=== PATIENT | male | born 1965 | race Caucasian/White ===

== ENCOUNTER 2016-11-08 11:28 | Emergency (ER) | payer MEDICARE, MEDICAID ==
[2016-11-08] MEDS ORDERED: HYDROMORPHONE HCL INJ/PF 2 MG/ML AMPULE IV ONE ×2 (11:39→12:41)
[2016-11-08] MEDS ORDERED: ONDANSETRON HCL INJ/PF 4 MG/2 ML SDV IV ONE (11:39)
--- NOTE | 2016-11-08 11:43 | ER Document Report ---
ED Extremity Problem, Lower - General Stated Complaint: RIGHT FOOT PAIN Time Seen by Provider: 11/08/16 11:36 Notes: Patient was in a hurry walking to his car and while coming down steps, his right toes caught on the bottom step plantar flexing the toes and distal foot causing injury to the dorsal aspect of the foot. Patient eased himself to the ground and sustained no other injuries. He cannot walk on the right foot. Transported here by EMS. Given 1 mg of Dilaudid IV and repeat. Patient has a history of bilateral foot drop secondary to 4 prior back surgeries. He has braces that he is supposed to wea on his legs all the time, but didn't put them on this morning. TRAVEL OUTSIDE OF THE [place] IN LAST 30 DAYS: No - Related Data Allergies/Adverse Reactions: Penicillins Allergy (Verified 10/16/15 12:36) Past Medical History - Social History Smoking Status: Unknown if Ever Smoked Cigarette use (# per day): No Family History: Reviewed & Not Pertinent - Medical History Medical History: Other - Chronic back pain on OxyContin and oxycodone - Past Medical History Cardiac Medical History: Reports: Hx Hypercholesterolemia, Hx Hypertension Pulmonary Medical History: Reports: Hx Pneumonia - Spontaneous Neurological Medical History: Reports: Other - Bilateral foot drop secondary to previous 4 surgeries on the lumbar back. Has a dorsal stimulator. GI Medical History: Reports: Hx Gastroesophageal Reflux Disease Past Surgical History: Reports: Hx Orthopedic Surgery - 4 back surgeries with placement of rods and pins, Other - Spontaneous pneumothorax surgery Review of Systems - Review of Systems Notes: REVIEW OF SYSTEMS: CONSTITUTIONAL : Denies fever. EENT: Denies eye, ear, nose or mouth or throat pain or other symptoms. CARDIOVASCULAR: Denies chest pain. RESPIRATORY: Denies cough, chest congestion, or shortness of breath. GASTROINTESTINAL: Denies abdominal pain or nausea, vomiting, or diarrhea. GENITOURINARY: Denies difficulty or painful urinating, urinary frequency, blood in urine. MUSCULOSKELETAL: Denies back or neck pain. Denies joint pain or swelling. See history of present illness. SKIN: Denies rash or skin lesions. NEUROLOGICAL: Denies LOC or altered mental status. Denies headache. Denies sensory loss or motor deficits. ALL OTHER SYSTEMS REVIEWED AND NEGATIVE. Physical Exam - Vital signs Vitals: Temp Pulse Resp BP Pulse Ox 98.2 F 85 16 105/69 94 11/08/16 13:44 11/08/16 13:44 11/08/16 13:44 11/08/16 13:44 11/08/16 13:44 Interpretation: Normal - Notes Notes: PHYSICAL EXAMINATION: GENERAL: Well-appearing, in no acute distress. HEAD: Atraumatic, normocephalic. ENT: oropharynx clear without exudates. Moist mucous membranes. NECK: Normal range of motion, supple. LUNGS: Breath sounds clear and equal bilaterally. HEART: Regular rate and rhythm without murmurs. ABDOMEN: Soft, nontender. No guarding or rebound. BACK: No tenderness throughout entire back. Dorsal stimulator palpable above the right buttock. EXTREMITIES: Normal range of motion left lower extremity without pain. Right foot has a moderate size hematoma on the dorsum of the midfoot region. Very tender to touch. Patient has excellent flow into the toes of both feet. Toes are pink and warm bilaterally. NEUROLOGICAL: Normal speech, gait not tested because of painful foot, unable to bear weight. Normal sensory, motor, and reflex exams. Awake, alert, and oriented x3. Cranial nerves normal. SKIN: Warm, dry, no rashes. Course - Vital Signs Vital signs: Temp Pulse Resp BP Pulse Ox 98.2 F 85 16 105/69 94 11/08/16 13:44 11/08/16 13:44 11/08/16 13:44 11/08/16 13:44 11/08/16 13:44 - Diagnostic Test Radiology reviewed: Image reviewed, Reports reviewed - X-ray of the right foot reveals a small fracture of the second metatarsal. Soft tissue swelling. Procedures - Immobilization Right Distal Foot Pre-Proc Neuro Vasc Exam: Normal Immobilizer type: Posterior ankle Performed by: PCT Post-Proc Neuro Vasc Exam: Normal Alignment checked and good: Yes Discharge - Discharge Clinical Impression: Avulsion fracture of metatarsal bone of right foot Qualifiers: Encounter type: initial encounter Fracture type: closed Qualified Code(s): S92.301A - Fracture of unspecified metatarsal bone(s), right foot, initial encounter for closed fracture Condition: Stable Disposition: HOME, SELF-CARE Additional Instructions: Avulsion Fracture Foot You have an avulsion fracture, sometimes also called a flake or chip fracture. This type of fracture is caused by a sudden stress on a ligament or tendon. As the ligament pulls on the bone, the bone gives way, and a chip of bone cracks off. Small avulsion fractures are not usually serious. More often, the ligament injury which caused the bone chip is of greater concern. The treatment is usually the same as for a ligament or tendon injury -- that is, rest, ice, and elevation -- with careful resumption of use once the pain and swelling have resolved. For some avulsion fractures, a cast or special splint is necessary. Large avulsion fractures may even require an operation. Often the treatment plan will change depending on how well your injury progresses. Healing usually takes between three and six weeks. Future X-rays will most likely still show this bone chip, as it does not "fuse." Call the doctor or return at once if swelling and pain become severe, or if numbness develops. SPLINT PRECAUTIONS: A splint has been placed. This will protect the area while healing begins. Your problem does NOT normally require a cast. It MUST, however, be held still! Keep the splint on ALL THE TIME until instructed to remove it by the doctor. As you begin to use the area, be careful. You shouldn't do anything which causes discomfort -- you may disturb the injury even with the splint in place. After the initial period of rest and elevation, if splint does not prevent pain when you move, come back. You may require placement of a different splint , or a cast. If there is unexpected severe pain, or numbness, discoloration, or swelling beyond the splint, you should return at once. If you feel that the splint has broken or become loose, come back. You will need to wear the splint on your foot for at least a week. You should see an orthopedic surgeon before the splint is discarded. USE OF CRUTCHES: The doctor has recommended that you not bear weight at this time. You will need to use crutches. Adjust the crutches so the tops come to about two inches under the armpit while you are standing upright. Use your hands -- not your armpits -- to support your weight. To get into a chair, support yourself with one crutch on the injured side. Hold the chair with the other hand, then lower yourself while putting all your weight on the good leg. Going up stairs is `good leg up, step up, then bring up crutches and bad leg.' Down stairs is `bad leg and crutches down, then bring good leg down.' If you develop numbness or swelling in an arm or hand, you are using the crutches incorrectly. Return if you are having any problems with the crutches. Use your own crutches from home. ICE & ELEVATION: Apply ice packs frequently against the painful area. Many different schedules are recommended, such as "20 minutes on, 20 minutes off" or "one hour ice, two hours rest." If you need to work, you may need to go longer between ice treatments. You should plan to have the area ice packed AT LEAST one- fourth of the time. The ice should be applied over the wrap, tape, or splint, or over a layer of cloth -- not directly against the skin. Some ice bags have a built-in cloth and can be put directly on the skin. Your injured part should be elevated as much as possible over the next 48 hours. Try to keep the injury above the level of the heart. Avoid use of the injured area. Elevation and rest will decrease the swelling. Take your own pain medications at home as prescribed. FOLLOW-UP CARE: If you have been referred to a physician for follow-up care, call the physician s office for an appointment as you were instructed or within the next two days. If you experience worsening or a significant change in your symptoms, notify the physician immediately or return to the Emergency Department at any time for re-evaluation. Referrals: SAM SABILLON MD [ACTIVE STAFF] - Follow up in 3-5 days TONY GRANT MD [ACTIVE STAFF] - Follow up in 3-5 days
[2016-11-08 13:45] VITALS: BP 105/69
== END 2016-11-08 13:52 | disposition home or self-care (01) ==
LOC: ER 11:28
PROC: 2W3SX1Z Immobilization of Right Foot using Splint (ICD-10-PCS; principal; 2016-11-08)
DX: S92.301A Fracture of unspecified metatarsal bone(s), right foot, initial encounter for closed fracture (principal); M79.671 Pain in right foot; W10.9XXA Fall (on) (from) unspecified stairs and steps, initial encounter; E78.00 Pure hypercholesterolemia, unspecified; I10 Essential (primary) hypertension; K21.9 Gastro-esophageal reflux disease without esophagitis
CPT/HCPCS: 99284; 73630; 29515; J1170; J2405

== ENCOUNTER → 2016-11-20 | Outpatient (CLI) | payer MEDICARE, MEDICAID ==
--- NOTE | 2016-11-20 13:36 | RADIOLOGY REPORT (SQ) ---
EXAM DESCRIPTION: CT HEAD WITHOUT COMPLETED DATE/TIME: 11/20/2016 12:53 pm REASON FOR STUDY: HEADACHE (R51) R51 HEADACHE COMPARISON: September 2015 TECHNIQUE: Axial images acquired through the brain without intravenous contrast. Images reviewed wi th bone, brain and subdural windows. Images stored on PACS. All CT scanners at this facility use dose modulation, iterative reconstruction, and/or weight based d osing when appropriate to reduce radiation dose to as low as reasonably achievable (ALARA). [facility]: Dose Right [facility]: CareDose [facility]: Dose Right [facility]: Teradose 4D [facility]: [employer] RADIATION DOSE: 48.95 mGy. LIMITATIONS: None. FINDINGS: VENTRICLES: Normal size and contour. CEREBRUM: No masses. No hemorrhage. No midline shift. Normal rhoades/white matter differentiation. N o evidence for acute infarction. CEREBELLUM: No masses. No hemorrhage. No alteration of density. No evidence for acute infarction. EXTRAAXIAL SPACES: No fluid collections. No masses. ORBITS AND GLOBE: No intra- or extraconal masses. Normal contour of globe without masses. CALVARIUM: No fracture. PARANASAL SINUSES: No fluid or mucosal thickening. SOFT TISSUES: No mass or hematoma. OTHER: No other significant finding. IMPRESSION: NORMAL BRAIN CT WITHOUT CONTRAST. TECHNICAL DOCUMENTATION: JOB ID: [id number] Quality ID # [id number]: Final reports with documentation of one or more dose reduction techniques (e.g., Au tomated exposure control, adjustment of the mA and/or kV according to patient size, use of iterative reconstruction technique) 2010 [employer]- All Rights Reserved
== END ==
LOC: RAD 12:39
PROVIDERS: ATTEND Family Medicine
DX: R51 Headache (principal)
CPT/HCPCS: 70450

== ENCOUNTER → 2017-02-13 | Outpatient (CLI) | payer MEDICARE, MEDICAID ==
--- NOTE | 2017-02-13 19:33 | XCELERA REPORT ---
[address] [address] Transthoracic Echocardiogram Report Name: BLANCA BEST Age: 51 yrs Gender: Male : 1965 Patient Status: Outpatient Patient Location: Study Date: 02/13/2017 02:51 PM Height: 71 in Weight: 160 lb BSA: 1.9 m2 Procedure: A complete two-dimensional transthoracic echocardiogram was performed (2D, M-mode, spectral and color flow Doppler). The study was technically difficult with many images being suboptimal in quality. Reason For Study: SOB/EDEMA Ordering Physician: KATINA LIRIANO Performed By: Hanna Grier Interpretation Summary The study was technically difficult with many images being suboptimal in quality. The left ventricular ejection fraction is normal. There is normal left ventricular wall thickness. The left ventricle is grossly normal size. LV diastolic function could not be adequately assessed. Wall motion cannot be accurately commented on, but no definite regional wall motion abnormalities noted. The right ventricular systolic function is mildly reduced. The right atrium is mildly dilated. The left atrial size is normal. There is no mitral valve stenosis. There is a trace amount of mitral regurgitation There is no aortic valve stenosis No aortic regurgitation is present. There is a trace to mild amount of tricuspid regurgitation There is mild pulmonary hypertension by echo Right ventricular systolic pressure is estimated to be elevated at 30- 40mmHg. The aortic root is not well visualized. The inferior vena cava appeared normal and decreased > 50% with respiration (RAP 5-10 mmHg) There is no pericardial effusion. MMode/2D Measurements & Calculations RVDd: 2.8 cm LVIDd: 4.1 cm FS: 36.4 % Ao root diam: 3.1 cm IVSd: 0.81 cm LVIDs: 2.6 cm EDV(Teich): 74.4 ml LVPWd: 0.79 cmESV(Teich): 24.9 ml Ao root area: 7.6 cm2 EF(Teich): 66.5 % LA dimension: 2.8 cm LVOT diam: 2.0 cm LVOT area: 3.3 cm2 Doppler Measurements & Calculations MV E max [place]: MV P1/2t max [place]: Ao V2 max: LV V1 max P.5 cm/sec 80.0 cm/sec 109.4 cm/sec 3.7 mmHg MV A max [place]: MV P1/2t: 43.9 msec Ao max PG: LV V1 max: 82.9 cm/sec MVA(P1/2t): 5.0 cm2 4.8 mmHg 95.8 cm/sec MV E/A: 0.96 MV dec slope: DIEGO(V,D): 2.9 cm2 534.0 cm/sec2 PA V2 max: TR max [place]: 73.5 cm/sec 247.6 cm/sec PA max PG: TR max P.5 mmHg 2.2 mmHg Left Ventricle The left ventricle is grossly normal size. There is normal left ventricular wall thickness. The left ventricular ejection fraction is normal. LV diastolic function could not be adequately assessed. Wall motion cannot be accurately commented on, but no definite regional wall motion abnormalities noted. Right Ventricle The right ventricle is mildly dilated. The right ventricular systolic function is mildly reduced. Atria The right atrium is mildly dilated. The left atrial size is normal. Interarterial septum not well visualized and not well dopplered. Cannot comment on ASD/PFO presence. Mitral Valve The mitral valve leaflets are sclerotic, but show no functional abnormalities. There is no mitral valve stenosis. There is a trace amount of mitral regurgitation. Aortic Valve The aortic valve is grossly normal. There is no aortic valve stenosis. No aortic regurgitation is present. Tricuspid Valve The tricuspid valve is not well visualized, but is grossly normal. There is no tricuspid stenosis. There is a trace to mild amount of tricuspid regurgitation. There is mild pulmonary hypertension by echo. Right ventricular systolic pressure is estimated to be elevated at 30-40mmHg. Pulmonic Valve The pulmonic valve is not well visualized. Great Vessels The aortic root is not well visualized. The inferior vena cava appeared normal and decreased > 50% with respiration (RAP 5-10 mmHg). Effusions There is no pericardial effusion. : KATINA LIRIANO > Edward Smith
== END ==
LOC: SP 14:42
PROVIDERS: ATTEND Family Medicine
DX: R06.02 Shortness of breath (principal); R60.9 Edema, unspecified
CPT/HCPCS: 93306

== ENCOUNTER → 2017-02-15 | Outpatient (CLI) | payer MEDICARE, MEDICAID ==
--- NOTE | 2017-02-15 18:37 | RADIOLOGY REPORT (SQ) ---
EXAM DESCRIPTION: CTA CHEST COMPLETED DATE/TIME: 02/15/2017 3:03 pm REASON FOR STUDY: SOB (R06.02), EDEMA (R60.9) R06.02 SHORTNESS OF BREATH R60.9 EDEMA, UNSPECIFIED COMPARISON: None. TECHNIQUE: CT scan of the chest performed using helical scanning technique with dynamic intravenous contrast injection. Images reviewed with lung, soft tissue and bone windows. Reconstructed coronal and sagittal MPR images reviewed. Additional 3 dimensional post-processing performed to develop Maximal Intensity Projection images (WI P). All images stored on PACS. All CT scanners at this facility use dose modulation, iterative reconstruction, and/or weight based d osing when appropriate to reduce radiation dose to as low as reasonably achievable (ALARA). [facility]: Dose Right [facility]: CareDose [facility]: Dose Right [facility]: Teradose 4D [facility]: [employer] CONTRAST TYPE AND DOSE: contrast/concentration: Isovue 370.00 mg/ml; Total Contrast Delivered: 63.1 ml; Total Saline Delivered: 100.0 ml RENAL FUNCTION: Creatinine 0.8 BUN 14 RADIATION DOSE: Up-to-date CT equipment and radiation dose reduction techniques were employed. CTDIv ol: 9.2 - 9.4 mGy. DLP: 388 mGy-cm. . LIMITATIONS: None. FINDINGS: LUNGS AND PLEURA: Scattered small paraseptal blebs are present. There is no infiltrate or effusion. There is no mass. There is a small suture line in the medial anterior aspect of left upp er lobe. AORTA AND GREAT VESSELS: No aneurysm or dissection. HEART: No pericardial effusion. PULMONARY ARTERIES: No emboli visualized in the main pulmonary arteries or the segmental branches. HILAR AND MEDIASTINAL STRUCTURES: No identified masses or abnormal nodes. HARDWARE: None in the chest. UPPER ABDOMEN: There are some small nonobstructing intrarenal calculi bilaterally. THYROID AND OTHER SOFT TISSUES: No masses. No adenopathy. BONES: No acute or significant finding. 3D MIPS: Confirm above findings. OTHER: Neural stimulator electrodes are present in the thoracic spine. IMPRESSION: 1. There is no evidence of pulmonary emboli. 2. There are mild chronic lung changes. 3. There are nonobstructing intrarenal calculi. TECHNICAL DOCUMENTATION: JOB ID: [id number] Quality ID # [id number]: Final reports with documentation of one or more dose reduction techniques (e.g., Au tomated exposure control, adjustment of the mA and/or kV according to patient size, use of iterative reconstruction technique) 2010 [employer]- All Rights Reserved
== END ==
LOC: RAD 14:22
PROVIDERS: ATTEND Family Medicine
DX: R06.02 Shortness of breath (principal); R60.9 Edema, unspecified; N20.0 Calculus of kidney
CPT/HCPCS: 71275

== ENCOUNTER → 2017-08-08 | Outpatient (CLI) | payer MEDICARE, MEDICAID ==
[2017-08-09 12:38] LABS: ANTICHROMATIN AB <0.2 AI (0.0-0.9); CENTROMERE B AB <0.2 AI (0.0-0.9); JO-1 ANTIBODY (ANACOMP) <0.2 AI (0.0-0.9); RNP AB <0.2 AI (0.0-0.9); SCLERODERMA-70 ANTIBODIES <0.2 AI (0.0-0.9); SJOGREN'S ANTI-SS-B AB <0.2 AI (0.0-0.9); SJOGREN'S SS-A ANTIBODY <0.2 AI (0.0-0.9); SMITH AB ANA <0.2 AI (0.0-0.9)
[2017-08-09 12:47] LABS: DNA DOUBLE STRAND ANTIBODY ANA <1 IU/mL (0-9)
[2017-08-09 16:40] LABS: CYTOPLASMIC (C-ANCA) <1:20 titer (Neg:<1:20)
[2017-08-10 14:49] LABS: ATYPICAL PANCA <1:20 titer (Neg:<1:20); PERINUCLEAR (P-ANCA) <1:20 titer (Neg:<1:20)
== END ==
LOC: OD 12:03
PROVIDERS: ATTEND Physician Assistant
DX: R94.2 Abnormal results of pulmonary function studies (principal)
CPT/HCPCS: 36415; 86021; 86225; 86235; 86430

== ENCOUNTER → 2017-08-08 | Outpatient (CLI) | payer MEDICARE, MEDICAID ==
--- NOTE | 2017-08-08 13:11 | RADIOLOGY REPORT (SQ) ---
EXAM DESCRIPTION: CT CHEST WITHOUT COMPLETED DATE/TIME: 08/08/2017 10:38 am REASON FOR STUDY: DYSPNEA (R06.00) R06.00 DYSPNEA, UNSPECIFIED COMPARISON: CT angio chest 02/15/2017 TECHNIQUE: CT scan performed of the chest without intravenous contrast. Images reviewed with lung, soft tissue and bone windows. Reconstructed coronal and sagittal MPR images reviewed. All images st ored on PACS. All CT scanners at this facility use dose modulation, iterative reconstruction, and/or weight based d osing when appropriate to reduce radiation dose to as low as reasonably achievable (ALARA). [facility]: Dose Right [facility]: CareDose [facility]: Dose Right [facility]: Teradose 4D [facility]: [employer] RADIATION DOSE: CT Rad equipment meets quality standard of care and radiation dose reduction techniq ues were employed. CTDIvol: 6.1 mGy. DLP: 246 mGy-cm. mGy. LIMITATIONS: No technical limitations. FINDINGS: LUNGS AND PLEURA: Obstructive lung disease with enlarged airspaces in the bilateral upper lobes. No focal infiltrates. No pleural effusion. No pneumothorax. No worrisome pulmonary nodules . Faintly radiopaque wendy in the and superior medial left lung, unchanged from 02/15/2017. HILAR AND MEDIASTINAL STRUCTURES: No identified masses or abnormal nodes. No obvious aneurysm. HEART AND VASCULAR STRUCTURES: No aneurysm. No pericardial effusion. Moderate coronary artery calci fication UPPER ABDOMEN: 2.6 cm left upper pole renal cortical cyst. THYROID AND OTHER SOFT TISSUES: No masses. No adenopathy. BONES: No acute fracture. HARDWARE: There is dorsal column stimulator with electrodes at the T8 level OTHER: No other significant findings. IMPRESSION: Obstructive lung disease. Evidence of old open left lung biopsy or surgery in the left lung apex. TECHNICAL DOCUMENTATION: JOB ID: [id number] Quality ID # [id number]: Final reports with documentation of one or more dose reduction techniques (e.g., Au tomated exposure control, adjustment of the mA and/or kV according to patient size, use of iterative reconstruction technique) 2010 [employer]- All Rights Reserved
== END ==
LOC: RAD 10:23
PROVIDERS: ATTEND Physician Assistant
DX: J44.9 Chronic obstructive pulmonary disease, unspecified (principal); R06.00 Dyspnea, unspecified
CPT/HCPCS: 71250